=== PATIENT | male | born 1975 | race Caucasian/White ===

== ENCOUNTER 2018-06-08 12:49 | Emergency (ER) | payer MEDICAID, OTHER ==
[~2018-06-08] VITALS: Ht 188 cm; Wt 121.8 kg
[2018-06-08 13:31] LABS: Urine WBC None Seen /hpf (0 - 3)
[2018-06-08 13:52] LABS: Urine Bacteria NONE SEEN /hpf (None Seen); Urine Blood Negative /uL (Negative); Urine Mucus FEW (None Seen)
[2018-06-08 14:10] LABS: Albumin 3.9 g/dL (3.4-5.0); Basophils # (auto) 0.1 uL; Basophils % (auto) 0.8 % (0.0-2.0); Calcium 8.8 mg/dL (8.5-10.1); Eosinophils # (auto) 0.5 uL; Eosinophils % (auto) 3.6 % (0.0-7.0); Hematocrit 48.4 % (41.0-53.0); Hemoglobin 16.3 g/dL (13.5-17.5); Lymphocytes # (auto) 3.3 uL; Lymphocytes % (auto) 26.3 % (10.0-50.0); Mean Corpuscular Hemoglobin 30.4 pg (28.0-32.0); Mean Corpuscular Hgb Conc. 33.8 g/dL (32.0-36.0); Monocytes # (auto) 1.1 uL; Monocytes % (auto) 8.6 % (0.0-12.0); Neutrophils # (auto) 7.6 uL; Neutrophils % (auto) 60.7 % (37.0-80.0); Nucleated Red Blood Cells % 0.1 %; Platelet Count (auto) 299 10^3/uL (140-450); Potassium 4.1 mmol/L (3.5-5.1); Red Blood Cells 5.38 10^6/uL (4.5-5.90); Red Cell Distribution Width 13.2 % (11.8-14.3); White Blood Cell 12.5 10^3/uL (4.4-10.8)
[2018-06-08 14:13] LABS: BUN/Creatinine Ratio 17.3; Bilirubin, Total 0.5 mg/dL (0.2-1.0); Total Protein 7.1 g/dL (6.4-8.2)
[2018-06-08 18:23] VITALS: BP 128/87
== END 2018-06-08 20:15 | disposition left against medical advice (07) ==
LOC: ER 13:26
DX: R10.9 Unspecified abdominal pain (principal); Z53.21 Procedure and treatment not carried out due to patient leaving prior to being seen by health care provider
CPT/HCPCS: 36415; 74176; 80053; 81001; 85025